=== PATIENT | female | born 1970 | race Caucasian/White ===

== ENCOUNTER 2016-09-26 10:01 | Day surgery (SDC) | payer BC ==
[2016-09-21 12:52] VITALS: BMI 27.1
[~2016-09-26 10:01] MED LIST: LACTATED RINGERS 1,000 ML IV SCH
[2016-09-26 10:13] VITALS: RESP 16; TEMP 98.2
[2016-09-26] MEDS ORDERED: LIDOCAINE 1% 20 ML VIAL (10MG/ML) FOR IV START INTRADERMA ONE (10:22)
[2016-09-26] MEDS ORDERED: fentaNYL (PF) 50 MCG/ML 2 ML AMP ONE (10:24)
[2016-09-26] MEDS ORDERED: DEXAMETHASONE SOD PHOS (MDV) 100 MG/10 ML VIAL ONE (10:24)
[2016-09-26] MEDS ORDERED: MIDAZOLAM 2 MG/2 ML VIAL ONE (10:24)
--- NOTE | 2016-09-26 10:45 | P.PCN ---
Date of Procedure: 09/26/16 Anesthesia: MAC Surgeon: Zack Serrano Pathology: none sent Condition: stable Disposition: PACU Description of Procedure: PREOPERATIVE DIAGNOSIS: Cervical radiculopathy. POSTOPERATIVE DIAGNOSIS: Cervical radiculopathy. PROCEDURE 1. Cervical epidural steroid injection under fluoroscopic guidance, C7-T1 level. 2. Cervical epidurogram. ANESTHESIA: Local anesthesia with 1% lidocaine and IV sedation with versed/ fentanyl. EBL: Minimal PROCEDURE INDICATION: The patient with neck pain and radiculitis unresponsive to conservative treatment consents for procedure. No use of blood thinners. PROCEDURE DESCRIPTION / TECHNIQUE: The patient was seen and identified in the preoperative area. Risks, benefits, complications, and alternatives were discussed with the patient (including but not limited to incomplete pain relief, bleeding, infection, nerve damage, and allergies to medications), the patient agreed to proceed with the procedure and signed the consent after all questions were answered. Patient was taken to the OR and time out was completed to verify proper patient , position, laterality of pain, and allergies. Pt was placed in the prone position. A pillow was placed under the patients chest to increase the cervical interlaminar space. The cervical area was prepped and draped in the usual sterile fashion. Critical pause was taken. Vital signs were closely monitored during the procedure. Conscious sedation was used during the procedure to decrease patients anxiety. Using anterior-posterior fluoroscopy, the C7-T1 interlaminar space was identified and the skin over this site was marked and then infiltrated with 1% lidocaine subcutaneously in a right paramedian fashion. Subsequently, a 20- gauge 3-1/2-inch Tuohy epidural needle was inserted and advanced toward the epidural space by means of the loss of resistance technique and guided by AP and lateral fluoroscopy. After negative aspiration for blood or CSF and in the absence of paresthesias, the correct needle position in the epidural space was verified with the injection of 1 mL of the water soluble contrast dye Omnipaque- 180 and observing an excellent epidurogram with the epidural spread of the dye, after negative aspiration for blood and CSF and in the absence of paresthesias. Again after negative aspiration, a 5 ml mixture containing 20 mg of Decadron and 3 ml of preservative free Normal Saline solution was injected and a washout of epidurogram was seen. Needle was withdrawn intact, skin was cleansed, and bandages were applied. COMPLICATIONS: None COMMENTS: DISPOSITION / PLANS: The patient was placed in a supine position and transferred to the recovery area in a stable condition for observation. There was no evidence of upper extremity motor or sensory deficit after the procedure. Patient was discharged from the recovery room after meeting discharge criteria. Home discharge instructions were given to the patient by the staff. The patient was reexamined prior to discharge and there were no issues. The patient will schedule a follow up in the clinic in 4-6 weeks.
--- NOTE | 2016-09-26 11:10 | FL ---
EXAMINATION TYPE: FL guided pain mgmt statistic DATE OF EXAM: 09/26/2016 10:48 AM HISTORY: Flouroscopy time 8 seconds of fluoroscopy provided. IMPRESSION: 1. Fluoroscopy time.
[2016-09-26 11:25] VITALS: BP 105/75; PULSE 68
[2016-09-26] MEDS ORDERED: IV FLUID CONTINUATION 1,000 ML IV ONE (11:25)
== END 2016-09-26 11:33 | disposition home or self-care (01) ==
LOC: ORPAIN 10:01
PROVIDERS: ATTEND Anesthesiology
DX: M54.12 Radiculopathy, cervical region (principal); Z79.891 Long term (current) use of opiate analgesic; Z79.899 Other long term (current) drug therapy
CPT/HCPCS: 81025; 62320; J2250; J3010; J1100; 62321

== ENCOUNTER → 2016-10-18 | Outpatient (CLI) | payer BC, OTHER ==
[2016-10-18 13:05] VITALS: BP 104/74; PULSE 71; RESP 16; TEMP 98
--- NOTE | 2016-10-18 14:14 | P.PN ---
Subjective This is follow-up visit for this patient with a history of severe and chronic neck pain with radiation to the upper extremities, is diagnosed with cervical degenerative disc disease and cervical radiculopathy, we have done cervical epidural steroid injections 3 and patient continued to have severe neck pain with radiation to the upper extremity bilaterally, and is currently on pain medications 1- Timberon 10/325 every 6 hours 2-Skelaxin 800 mg 3 times a day Patient denies any side effects of the medication, denies excessive drowsiness or sleepiness, denies suicidal ideation, and reports that the current pain medication is NOT helping To control the pain and improve activity of daily living Physical Examinations : 1-Constitutiona : Cooperative , not in acute distress . 2-HEENT : nech ; supple , no Lymphadenopathy , no Thyromegaly , normal thyroid size . eyes : no ptosis , no icterus, no photophobia . ENT : normal of hearing , normal oropharynx , no Thrush . 3- Respiratory : Chest clear to auscultations Bilaterally , no wheezing , no Rhonchi . 4- Cardiovascular : regular rate and rhythem , S1 , S2 , no S3 , no S4. 5- Gastrointestinal : abdomen soft no tenderness , bowel sounds positive all four quadrents , no organomegally . 6- Genitourinary : Defferred . 7- neurologic : Cranial nerve II to XII intact , no focal neurological deffecit . 8-psychatric : alert , oriented X 3 , appropriate affect , intact judgment and insight . 9-Lymphatic : no Lymphadenopathy . 10- musculoskeltal : exams of the cervical spine = motor strength normal bilateral upper extremities 4/5 bilaterally facet loading test cervical area positive. Normal sensation in the upper extremities bilaterally Assessment and plan = Cervical radiculopathy /cervical degenerative disc disease. Status post cervical epidural steroid injection 3 patient continued to have neck pain with radiation to the upper extremity, patient tried Neurontin in the past and she had side effects from it (skin breakdown ), discussed with the patient the option of starting on new medication Lyrica patient refused to take this medication because she has fuels family members used Lyrica and did have side effects from it, the patient tried Motrin in the past without any benefit, recommend start patient on Mobic 7.5 mg one tablet by mouth twice a day, and also patient could benefit from amitriptyline 25 mg daily at bedtime and this will be adjuvant for pain and also for help with sleep and improve her mood, the patient should continue her current pain medication Timberon 10/325 every 6 hours, and should continue her Skelaxin (getting prescription from Dr. Conner) , patient encouraged to do physical therapy, patient reported ,that she's done physical therapy in the past, without any benefit and I encouraged her to do physical therapy at home on her own, patient scheduled appointment to see Dr Conner 11/11/2016 for reevaluation Objective - Vital Signs Vital signs: Vital Signs Temp 98 F 10/18/16 12:51 Pulse 71 10/18/16 12:51 Resp 16 10/18/16 12:51 BP 104/74 10/18/16 12:51 Pulse Ox 99 10/18/16 12:51 Intake & Output 10/17/16 10/18/16 10/18/16 18:59 06:59 18:59 Weight 61.235 kg
== END | disposition home or self-care (01) ==
LOC: PNWHC3 12:43
PROVIDERS: ATTEND Specialist
DX: G89.29 Other chronic pain (principal); M50.30 Other cervical disc degeneration, unspecified cervical region; M54.12 Radiculopathy, cervical region
CPT/HCPCS: 99211

== ENCOUNTER 2017-08-11 14:49 | Emergency (ER) | payer OTHER ==
[2017-08-11] MEDS ORDERED: RX INFO: IV CONTRAST WAS GIVEN 1 EACH MISC MISCELLANE PRN (15:45)
--- NOTE | 2017-08-11 15:53 | ED ---
General Adult HPI - General Chief complaint: Abdominal Pain Stated complaint: [facility] Sent/Abd Pain Time Seen by Provider: 08/11/17 15:33 Source: patient, RN notes reviewed Mode of arrival: ambulatory Limitations: no limitations - History of Present Illness Initial comments: 47-year-old female presents to the emergency department with a chief complaint of left-sided rib pain. Patient has had this pain since Saturday when she got her car. She has this pain. If she bends of speech with that she coughs she's noticed is increased pain. Patient denies any fever chills with this. She states there is no pain in the abdomen. Patient denies any nausea vomiting any changes in bowel or bladder habits. Patient [facility] her here due to they thought they saw some abnormality on abdominal x- ray. Patient has no back pain with this. Patient denies any recent fever, chills, shortness of breath, chest pain, back pain, abdominal pain, nausea vomiting, numbness or tingling, dysuria or hematuria, constipation or diarrhea, headaches or visual changes, or any other current symptoms. - Related Data Home Medications Medication Instructions Recorded Confirmed Metaxalone [Skelaxin] 800 mg PO TID PRN 08/03/16 08/11/17 Ibuprofen [Motrin] 400 mg PO Q6HR PRN 08/11/17 08/11/17 Multivitamins, Thera [Multivitamin 1 tab PO DAILY 08/11/17 08/11/17 (formulary)] traMADol HCL [Ultram] 50 mg PO TID PRN 08/11/17 08/11/17 Previous Rx's Medication Instructions Recorded Ibuprofen [Motrin] 600 mg PO Q6HR PRN #20 tab 08/11/17 Orphenadrine [Norflex] 100 mg PO Q12H #10 tablet.er 08/11/17 Allergies Allergy/AdvReac Type Severity Reaction Status Date / Time gabapentin Allergy Rash/Hives Verified 08/11/17 15:04 meloxicam Allergy Rash/Hives Verified 08/11/17 15:04 Review of Systems ROS Statement: Those systems with pertinent positive or pertinent negative responses have been documented in the HPI. ROS Other: All systems not noted in ROS Statement are negative. Past Medical History Past Medical History: Osteoarthritis (OA) Additional Past Medical History / Comment(s): HX kidney stones History of Any Multi-Drug Resistant Organisms: None Reported Past Surgical History: Appendectomy, Orthopedic Surgery, Tubal Ligation Additional Past Surgical History / Comment(s): 01/19/16 cervical arthroplasty C4- 5. Other surgical hx: ovarian cyst removed, carpal tunnel right hand Past Anesthesia/Blood Transfusion Reactions: Postoperative Nausea & Vomiting ( PONV) Past Psychological History: No Psychological Hx Reported Smoking Status: Current every day smoker Past Alcohol Use History: None Reported, Rare Past Drug Use History: None Reported - Past Family History Father Family Medical History: Cancer Additional Family Medical History / Comment(s): Father of lung cancer at the age of 67yrs. Son(s) Family Medical History: Cancer Additional Family Medical History / Comment(s): Son had hodgkins and has been in remission for yrs. Mother Family Medical History: Cancer Additional Family Medical History / Comment(s): from lung ca and leukemia General Exam - General Exam Comments Initial Comments: General: The patient is awake and alert, in no distress, and does not appear acutely ill. Eye: Pupils are equal, round and reactive to light, extra-ocular movements are intact; there is normal conjunctiva bilaterally. No signs of icterus. Ears, nose, mouth and throat: There are moist mucous membranes and no oral lesions. Neck: The neck is supple, there is no tenderness. Cardiovascular: There is a regular rate and rhythm. No murmur, rub or gallop is appreciated. Respiratory: Lungs are clear to auscultation, respirations are non-labored, breath sounds are equal. No wheezes, stridor, rales, or rhonchi. Tenderness to the left lateral chest wall. Gastrointestinal: Soft, non-distended, non-tender abdomen without masses or organomegaly noted. There is no rebound or guarding present. No CVA tenderness. Bowel sounds are unremarkable. Back: There is no tenderness to palpation in the midline. There is no obvious deformity. No rashes noted. Musculoskeletal: Normal ROM, no tenderness, There is no pedal edema. There is no calf tenderness or swelling. Sensation intact. Pulses equal bilaterally 2+. Neurological: CN II-XII intact, There are no obvious motor or sensory deficits. Coordination appears grossly intact. Speech is normal. Skin: Skin is warm and dry and no rashes or lesions are noted. Psychiatric: Cooperative, appropriate mood & affect, normal judgment. Limitations: no limitations Course Vital Signs 08/11/17 14:54 Temperature 97.8 F Pulse Rate 75 Respiratory 18 Rate Blood Pressure 115/73 O2 Sat by Pulse 99 Oximetry - Reevaluation(s) Reevaluation #1: 08/11/17 16:32 Hyperkalemia was found on lab however this was slightly hemolyzed an EKG is stable. Extremities discussed follow-up for repeat in one day. EKG Findings - EKG Comments: EKG Findings:: normal sinus rhythm 68 bpm, normal axis, no atopy, no S-T depressions or elevations, Medical Decision Making - Medical Decision Making 47-year-old female presents to the emergency Department chief complaint of left- sided rib pain. This time consistent with costochondritis and muscle strain. At this time patient's outpatient imaging is reviewed we will do a CAT scan due to the concern for possible twisted bowel the family is in agreement with this plan. This time there is low suspicion. At this time the patient's imaging and lab work is been reviewed. At this time the patient does not appear to have any abdominal abnormality. Patient's symptoms are most consistent with left-sided pain. EKG was reviewed and normal. This time we discussed follow- up with her doctor return parameters and all questions. Patient stated that she understood and she is given plan. She'll be discharged. - Lab Data Result diagrams: 08/11/17 15:45 08/11/17 15:45 Lab Results 08/11/17 08/11/17 Range/Units 15:45 15:45 WBC 9.7 (3.8-10.6) k/uL RBC 4.35 (3.80-5.40) m/uL Hgb 14.5 (11.4-16.0) gm/dL Hct 43.1 (34.0-46.0) % MCV 99.2 (80.0-100.0) fL MCH 33.4 (25.0-35.0) pg MCHC 33.7 (31.0-37.0) g/dL RDW 12.4 (11.5-15.5) % Plt Count 216 (150-450) k/uL Neutrophils % 55 % Lymphocytes % 31 % Monocytes % 8 % Eosinophils % 3 % Basophils % 1 % Neutrophils # 5.3 (1.3-7.7) k/uL Lymphocytes # 3.0 (1.0-4.8) k/uL Monocytes # 0.8 (0-1.0) k/uL Eosinophils # 0.3 (0-0.7) k/uL Basophils # 0.1 (0-0.2) k/uL Sodium 137 (137-145) mmol/L Potassium 5.9 H (3.5-5.1) mmol/L Chloride 109 H (98-107) mmol/L Carbon Dioxide 22 (22-30) mmol/L Anion Gap 6 mmol/L BUN 15 (7-17) mg/dL Creatinine 0.79 (0.52-1.04) mg/dL Est GFR (MDRD) Af Amer >60 (>60 ml/min/1.73 sqM) Est GFR (MDRD) Non-Af >60 (>60 ml/min/1.73 sqM) Glucose 95 (74-99) mg/dL Calcium 9.4 (8.4-10.2) mg/dL Total Bilirubin 0.7 (0.2-1.3) mg/dL AST 53 H (14-36) U/L ALT 22 (9-52) U/L Alkaline Phosphatase 38 (38-126) U/L Total Protein 7.2 (6.3-8.2) g/dL Albumin 4.0 (3.5-5.0) g/dL - Radiology Data Radiology results: report reviewed, image reviewed Disposition Clinical Impression: Costochondral chest pain, Chest wall muscle strain Disposition: HOME SELF-CARE Condition: Stable Instructions: Costochondritis (ED) Additional Instructions: Please use medication as discussed. Please follow up with family doctor if symptoms have not improved over the next two days. Please return to the emergency room if your symptoms increase or worsen or for any other concerns. Prescriptions: Ibuprofen [Motrin] 600 mg PO Q6HR PRN #20 tab PRN Reason: Pain Orphenadrine [Norflex] 100 mg PO Q12H #10 tablet.er Referrals: Akua Grossman MD [Primary Care Provider] - 1-2 days Time of Disposition: 16:33
[2017-08-11 16:15] LABS: Basophils # (A) 0.1 k/uL (0-0.2); Basophils % (A) 1 %; CH 33.8; CHCM 34.3; Eosinophils # (A) 0.3 k/uL (0-0.7); Eosinophils % (A) 3 %; HCT 43.1 % (34.0-46.0); HDW 2.19; HGB 14.5 gm/dL (11.4-16.0); Luc # (Auto) 0.32; Luc % (Auto) 3; Lymphocytes % (A) 31 %; MCH 33.4 pg (25.0-35.0); MCHC 33.7 g/dL (31.0-37.0); MCV 99.2 fL (80.0-100.0); Mean Platelet Volume 7.8; Monocytes # (A) 0.8 k/uL (0-1.0); Monocytes % (A) 8 %; Neutrophils # (A) 5.3 k/uL (1.3-7.7); Neutrophils % (A) 55 %; RBC 4.35 m/uL (3.80-5.40); RDW 12.4 % (11.5-15.5); WBC 9.7 k/uL (3.8-10.6)
--- NOTE | 2017-08-11 16:24 | CT ---
EXAMINATION TYPE: CT abdomen pelvis w con DATE OF EXAM: 08/11/2017 COMPARISON: 12/09/2011 HISTORY: LUQ pain. CT DLP: 411.8 mGycm CONTRAST: CT scan of the abdomen and pelvis is performed without Oral Contrast and with IV Contrast, patient in jected with 100 mL of Omnipaque 300. FINDINGS: LUNG BASES-: No visible nodule. No infiltrate. Anterior pericardial collection measuring 5.5 x 1.3 c m unchanged from prior examination with fluid attenuation may reflect pericardial cyst. LIVER/GB: The gallbladder is contracted. Small hepatic cyst left hepatic lobe measuring 5 mm. No so lid hepatic lesions are detected. Biliary tree is of normal caliber. PANCREAS: No inflammation. No distinct mass. SPLEEN: No splenic enlargement. No lesion seen. ADRENALS: No nodule. No thickening. KIDNEYS/BLADDER: No hydronephrosis. No nephrolithiasis. No disctinct renal mass. Urinary bladder g rossly unremarkable. BOWEL: Nonvisualization of the appendix. Gastric distention with food debris. Normal bowel caliber. No inflammation. GENITAL ORGANS: No gross abnormality. LYMPH NODES: No greater than 1cm abdominal or pelvic lymph nodes are appreciated. AORTA: No significant abnormality. OSSEOUS STRUCTURES: No significant abnormality is seen. OTHER: No significant additional abnormality is seen. IMPRESSION: 1. No acute intra-abdominal process to account for the patient's symptoms. 2. 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
[2017-08-11 16:28] LABS: ALT 22 U/L (9-52); AST 53 U/L (14-36); Alkaline Phosphatase 38 U/L (38-126); Anion Gap 6 mmol/L; Blood Urea Nitrogen 15 mg/dL (7-17); Calcium 9.4 mg/dL (8.4-10.2); Carbon Dioxide 22 mmol/L (22-30); Chloride 109 mmol/L (98-107); Glucose 95 mg/dL (74-99); Non-African American GFR(MDRD) >60 (>60 ml/min/1.73 sqM); Sodium 137 mmol/L (137-145); Total Bilirubin 0.7 mg/dL (0.2-1.3); Total Protein 7.2 g/dL (6.3-8.2)
[2017-08-11 16:32] LABS: Potassium 5.9 mmol/L (3.5-5.1)
[2017-08-11 16:48] VITALS: BP 109/59; PULSE 76; RESP 16; TEMP 98.9
== END 2017-08-11 16:47 | disposition home or self-care (01) ==
LOC: EC 14:49
DX: S29.011A Strain of muscle and tendon of front wall of thorax, initial encounter (principal); R07.1 Chest pain on breathing; R10.9 Unspecified abdominal pain; F17.200 Nicotine dependence, unspecified, uncomplicated; Z79.899 Other long term (current) drug therapy; Z88.6 Allergy status to analgesic agent; Z88.8 Allergy status to other drugs, medicaments and biological substances; X58.XXXA Exposure to other specified factors, initial encounter
CPT/HCPCS: 36415; 93005; 80053; 85025; 74177; 99284; Q9967

== ENCOUNTER 2020-03-15 16:12 | Emergency (ER) | payer OTHER ==
[2020-03-15 16:25] VITALS: BP 128/82; PULSE 69; RESP 18; TEMP 98.2
[2020-03-15] MEDS ORDERED: AMOXIC-POT CLAV 875-125MG 1 EACH TAB PO STA (16:44)
[2020-03-15] MEDS ORDERED: DEXAMETHASONE 4 MG TAB PO STA (16:44)
--- NOTE | 2020-03-15 16:58 | ED ---
General Adult HPI - General Chief complaint: Skin/Abscess/Foreign Body Stated complaint: abscess on tonsil Time Seen by Provider: 03/15/20 16:29 Source: patient, RN notes reviewed Mode of arrival: ambulatory Limitations: no limitations - History of Present Illness Initial comments: 49-year-old female without any significant pertinent past medical history presents to the emergency department for a chief complaint of sore throat. Patient states she has had sore throat for the past 4 days. States it hurts worse on the left side. Denies any difficulty swallowing but does state it is painful when she swallows. Denies fevers or chills. States that she went to [facility] 3 days ago and they started her on Keflex and told her she had a peritonsillar abscess. She was told to go to the emergency room if things worsened. Patient states nothing is worsened by her pain is not improving. Patient has no other complaints at this time including shortness of breath, chest pain, abdominal pain, nausea or vomiting, headache, or visual changes. - Related Data Home Medications Medication Instructions Recorded Confirmed Metaxalone [Skelaxin] 800 mg PO TID PRN 08/03/16 08/11/17 Ibuprofen [Motrin] 400 mg PO Q6HR PRN 08/11/17 08/11/17 Multivitamins, Thera [Multivitamin 1 tab PO DAILY 08/11/17 08/11/17 (formulary)] traMADol HCL [Ultram] 50 mg PO TID PRN 08/11/17 08/11/17 Previous Rx's Medication Instructions Recorded Ibuprofen [Motrin] 600 mg PO Q6HR PRN #20 tab 08/11/17 Orphenadrine [Norflex] 100 mg PO Q12H #10 tablet.er 08/11/17 Amoxicillin/Potassium Clav 1 tab PO Q12HR #20 tab 03/15/20 [Augmentin 875-125 Tablet] Allergies Allergy/AdvReac Type Severity Reaction Status Date / Time gabapentin Allergy Rash/Hives Verified 03/15/20 16:25 meloxicam Allergy Rash/Hives Verified 03/15/20 16:25 Review of Systems ROS Statement: Those systems with pertinent positive or pertinent negative responses have been documented in the HPI. ROS Other: All systems not noted in ROS Statement are negative. Past Medical History Past Medical History: Osteoarthritis (OA) Additional Past Medical History / Comment(s): HX kidney stones History of Any Multi-Drug Resistant Organisms: None Reported Past Surgical History: Appendectomy, Orthopedic Surgery, Tubal Ligation Additional Past Surgical History / Comment(s): 01/19/16 cervical arthroplasty C4- 5. Other surgical hx: ovarian cyst removed, carpal tunnel right hand Past Anesthesia/Blood Transfusion Reactions: Postoperative Nausea & Vomiting (PONV) Past Psychological History: No Psychological Hx Reported Smoking Status: Current every day smoker Past Alcohol Use History: Rare Past Drug Use History: None Reported - Past Family History Father Family Medical History: Cancer Additional Family Medical History / Comment(s): Father of lung cancer at the age of 67yrs. Son(s) Family Medical History: Cancer Additional Family Medical History / Comment(s): Son had hodgkins and has been in remission for yrs. Mother Family Medical History: Cancer Additional Family Medical History / Comment(s): from lung ca and leukemia General Exam Limitations: no limitations General appearance: alert, in no apparent distress Head exam: Present: atraumatic, normocephalic, normal inspection Eye exam: Present: normal appearance, PERRL, EOMI. Absent: scleral icterus, conjunctival injection, periorbital swelling ENT exam: Present: normal exam, mucous membranes moist, TM's normal bilaterally, normal external ear exam. Absent: normal oropharynx (Mildly erythematous oropharynx without evidence of tonsillar exudates. Uvula is midline. Tonsillar pillars are symmetric. There is no evidence of peritonsillar abscess.) Neck exam: Present: normal inspection, full ROM. Absent: tenderness, men ingismus, lymphadenopathy Respiratory exam: Present: normal lung sounds bilaterally. Absent: respiratory distress, wheezes, rales, rhonchi, stridor Cardiovascular Exam: Present: regular rate, normal rhythm, normal heart sounds. Absent: systolic murmur, diastolic murmur, rubs, gallop, clicks Course Vital Signs 03/15/20 16:23 Temperature 98.2 F Pulse Rate 69 Respiratory 18 Rate Blood Pressure 128/82 O2 Sat by Pulse 98 Oximetry Medical Decision Making - Medical Decision Making Physical exam reveals a minimally erythematous oropharynx however no tonsillar exits bilaterally. There is no evidence of peritonsillar abscess whatsoever. Uvula is midline. Tonsillar pillars are symmetric. Patient was started initially on Keflex by urgent care however this will be changed to Augmentin which is more appropriate. She will be given a dose of Decadron. Patient was already tested negative for strep and has a pending culture with urgent care. I did discuss the high likelihood that this is viral. Discussed returning here if she has any worsening symptoms. Disposition Clinical Impression: Pharyngitis Disposition: HOME SELF-CARE Condition: Good Instructions (If sedation given, give patient instructions): Pharyngitis (ED) Additional Instructions: Please discontinue Keflex. Take Augmentin as directed instead. Follow up with primary care in 1-2 days. If this is not resolving you can follow up with ENT. Return to the emergency room for any worsening symptoms. Prescriptions: Amoxicillin/Potassium Clav [Augmentin 875-125 Tablet] 1 tab PO Q12HR #20 tab Is patient prescribed a controlled substance at d/c from ED?: No Referrals: Akua Grossman MD [Primary Care Provider] - 1-2 days Umesh Watts MD [STAFF PHYSICIAN] - 1-2 days Time of Disposition: 16:50
== END 2020-03-15 17:20 | disposition home or self-care (01) ==
LOC: EC 16:12
DX: J02.9 Acute pharyngitis, unspecified (principal); F17.200 Nicotine dependence, unspecified, uncomplicated; Z88.6 Allergy status to analgesic agent; Z88.8 Allergy status to other drugs, medicaments and biological substances
CPT/HCPCS: 99282; J8540

== ENCOUNTER 2024-09-13 13:24 | Emergency (ER) | payer OTHER ==
[2024-09-13 14:00] VITALS: RESP 20; TEMP 98.2
--- NOTE | 2024-09-13 14:15 | ED ---
URI HPI - General Source: patient, RN notes reviewed Mode of arrival: ambulatory Limitations: no limitations - History of Present Illness MD Complaint: cough Onset/Timin -: days(s) <Roel Ochoa - Last Filed: 09/13/24 14:14> - General Source: patient, RN notes reviewed, old records reviewed <Xavi Cortez - Last Filed: 09/13/24 15:34> - General Chief Complaint: Upper Respiratory Infection Stated Complaint: Chest/rib pain Time Seen by Provider: 09/13/24 13:41 - History of Present Illness Initial Comments: Quick note: This is a 54-year-old female presenting with reproducible chest/rib pain, bilateral ear pain and headache x 7 days. Patient states she recently went to an urgent care and was diagnosed with a bilateral ear infection and bronchitis. States she was prescribed doxycycline, prednisone and an inhaler with minimal relief. Denies fever, chills, dyspnea, hemoptysis, abdominal pain, N/V/D. (Roel Ochoa) Patient presents to the emergency department continued URI symptoms, ear pressure, face pressure, nasal discharge over the course of last week. Has been on some antibiotics as well as steroids with no significant improvement in symptoms. Is also on albuterol. Is a smoker. Presents because symptoms are persistent today. She is complaining of some rib pain with coughing. Denies any focal chest pain. Denies any nausea or vomiting or diarrhea. No other acute complaints. Presents for further evaluation at this time. (Xavi Cortez) - Related Data Home Medications Medication Instructions Recorded Confirmed Metaxalone [Skelaxin] 800 mg PO TID PRN 08/03/16 08/11/17 Ibuprofen [Motrin] 400 mg PO Q6HR PRN 08/11/17 08/11/17 Multivitamins, Thera [Multivitamin 1 tab PO DAILY 08/11/17 08/11/17 (formulary)] traMADol HCL [Ultram] 50 mg PO TID PRN 08/11/17 08/11/17 Previous Rx's Medication Instructions Recorded Ibuprofen [Motrin] 600 mg PO Q6HR PRN #20 tab 08/11/17 Orphenadrine [Norflex] 100 mg PO Q12H #10 tablet.er 08/11/17 Amoxicillin/Potassium Clav 1 tab PO Q12HR #20 tab 03/15/20 [Augmentin 875-125 Tablet] Azithromycin [Zithromax] 250 mg PO DAILY 4 Days #4 tab 09/13/24 predniSONE [Deltasone] 20 mg PO BID 5 Days #10 tab 09/13/24 Allergies Allergy/AdvReac Type Severity Reaction Status Date / Time gabapentin Allergy Rash/Hives Verified 09/13/24 14:00 meloxicam Allergy Rash/Hives Verified 09/13/24 14:00 Review of Systems ROS Other: All systems not noted in ROS Statement are negative. <Roel Ochoa - Last Filed: 09/13/24 14:14> ROS Other: All systems not noted in ROS Statement are negative. <Xavi Cortez - Last Filed: 09/13/24 15:34> ROS Statement: Those systems with pertinent positive or pertinent negative responses have been documented in the HPI. Review of Systems: CONST: Denies fever EYES: Denies blurry vision ENT: Denies nasal congestion C/V: Denies Chest pain RESP: Endorses cough, congestion GI: Denies abdominal pain : Denies dysuria SKIN: Denies rash. MSK: Denies joint pain. NEURO: Denies headache (Xavi Cortez) Past Medical History Past Medical History: Osteoarthritis (OA) Additional Past Medical History / Comment(s): HX kidney stones History of Any Multi-Drug Resistant Organisms: None Reported Past Surgical History: Appendectomy, Orthopedic Surgery, Tubal Ligation Additional Past Surgical History / Comment(s): 01/19/16 cervical arthroplasty C4- 5. Other surgical hx: ovarian cyst removed, carpal tunnel right hand Past Anesthesia/Blood Transfusion Reactions: Postoperative Nausea & Vomiting (PONV) Past Psychological History: No Psychological Hx Reported Smoking Status: Current every day smoker Past Alcohol Use History: Rare Past Drug Use History: None Reported - Past Family History Father Family Medical History: Cancer Additional Family Medical History / Comment(s): Father of lung cancer at the age of 67yrs. Son(s) Family Medical History: Cancer Additional Family Medical History / Comment(s): Son had hodgkins and has been in remission for yrs. Mother Family Medical History: Cancer Additional Family Medical History / Comment(s): from lung ca and leukemia <Roel Ochoa - Last Filed: 09/13/24 14:14> General Exam Limitations: no limitations <Roel Ochoa - Last Filed: 09/13/24 14:14> <Xavi Cortez - Last Filed: 09/13/24 15:34> - General Exam Comments Initial Comments: Visual Physical Exam Vital signs reviewed General: Well-appearing, nontoxic, no acute distress. Head: Normocephalic, atraumatic Eyes: PERRLA, EOMI ENT: Airway patent Chest: Nonlabored breathing Skin: No visual rash, normal skin tone Neuro: Alert and oriented 3 Musculoskeletal: No gross abnormalities (Roel Ochoa) General: Appears in no acute distress. HEAD: Normal with no signs of head trauma. EYES: EOMI ENT: Hearing grossly intact, normal oropharynx. RESPIRATORY: Clear breath sounds bilaterally. No wheezes, rales, or rhonchi. No significant hypoxia. No increased work of breathing. C/V: Regular rate and rhythm. S1 and S2 auscultated, no edema, peripheral pulses 2+ and intact throughout ABD: Abd is soft, nontender, nondistended EXT: Normal range of motion, no obvious deformity. Bilateral rib tenderness to palpation. SKIN: No rashes or lesions observed on exposed skin. NEURO: Alert and oriented x 4. (Xavi Cortez) Course Vital Signs 09/13/24 13:58 Temperature 98.2 F Pulse Rate 78 Respiratory 20 Rate Blood Pressure 127/81 O2 Sat by Pulse 97 Oximetry Medical Decision Making <Roel Ochoa - Last Filed: 09/13/24 14:14> <Xavi Cortez - Last Filed: 09/13/24 15:34> - Medical Decision Making I completed the quick note portion of this chart signed JUNG Martinez (Roel Ochoa) Was pt. sent in by a medical professional or institution (RIGO Estrada, [employer]PERVISOR, urgent care, hospital, or correction...) When possible be specific @ -No Did you speak to anyone other than the patient for history (EMS, parent, family, police, friend...)? What history was obtained from this source @ -No Did you review nursing and triage notes (agree or disagree)? Why? @ -I reviewed and agree with nursing and triage notes Were old charts reviewed (outside hosp., previous admission, EMS record, old EKG, old radiological studies, urgent care reports/EKG's, correction records)? Report findings @ -No old charts were reviewed Differential Diagnosis (chest pain, altered mental status, abdominal pain women, abdominal pain men, vaginal bleeding, weakness, fever, dyspnea, syncope, headache, dizziness, GI bleed, back pain, seizure, CVA, palpatations, mental health, musculoskeletal)? @ -COVID, flu, RSV, pneumonia. This list is not all inclusive. EKG interpreted by me (3pts min.). @ -None done X-rays interpreted by me (1pt min.). @ -Chest x-ray reveals no obvious acute cardiopulmonary process. CT interpreted by me (1pt min.). @ -None done U/S interpreted by me (1pt. min.). @ -None done What testing was considered but not performed or refused? (CT, X-rays, U/S, labs)? Why? @ -None What meds were considered but not given or refused? Why? @ -None Did you discuss the management of the patient with other professionals (professionals i.e. , PA, [employer]OUNTS SUPERVISOR, lab, RT, psych nurse, social science analyst, immigration lawyer, teacher, forest fire officer, special education case manager)? Give summary @ -No Was smoking cessation discussed for >3mins.? @ -No Was critical care preformed (if so, how long)? @ -No Were there social determinants of health that impacted care today? How? (Homelessness, low income, unemployed, alcoholism, drug addiction, transportation, low edu. Level, literacy, decrease access to med. care, [place] [facility], rehab)? @ -No Was there de-escalation of care discussed even if they declined (Discuss DNR or withdrawal of care, Hospice)? DNR status @ -No What co-morbidities impacted this encounter? (DM, HTN, Smoking, COPD, CAD, Cancer, CVA, ARF, Chemo, Hep., AIDS, mental health diagnosis, sleep apnea, morbid obesity)? @ -Tobacco user Was patient admitted / discharged? Hospital course, mention meds given and route, prescriptions, significant lab abnormalities, going to OR and other pertinent info. @ -Patient presents emergency department with URI symptoms. Have been ongoing for 1 week. Is currently on doxycycline as well as prednisone and inhaler. States symptoms are not significantly improving presents for further evaluation. He is still having cough. Is starting congestion. Patient was started as a quick note. I evaluated patient in the hallway. Viral swabs negative. Chest x-ray unremarkable. Vital signs within acceptable limits. I discussed results with the patient. I do not believe she requires admission at this time. Patient will be given a dose of IM Solu-Medrol as well as azithromycin. Recommend she continues of albuterol at home. She will be given additional days of prednisone. I depletes this is likely a tracheobronchitis. Strict return precautions discussed. Azithromycin will cover for atypical pneumonia/walking pneumonia. She was in agreement this plan. Strict return precautions discussed. Recommend she follow-up with her PCP in the next 1 to 3 days. I will provide the patient with a prescription for prednisone, azithromycin. I instructed the patient to follow up with their PCP in the next 1-3 days.. I explained that the patient should return to the emergency department if they experience any worsening symptoms. Strict return precautions were discussed with the patient. The patient expressed understanding of these instructions. I answered all questions that the patient had. The patient was discharged home in good condition with their prescriptions and follow up information. Undiagnosed new problem with uncertain prognosis? @ -No Drug Therapy requiring intensive monitoring for toxicity (Heparin, Nitro, Insulin, Cardizem)? @ -No Were any procedures done? @ -No Diagnosis/symptom? @ -Tracheobronchitis Acute, or Chronic, or Acute on Chronic? @ -Acute Uncomplicated (without systemic symptoms) or Complicated (systemic symptoms)? @ -Uncomplicated Side effects of treatment? @ -No Exacerbation, Progression, or Severe Exacerbation? @ -No Poses a threat to life or bodily function? How? (Chest pain, USA, VT, pneumonia, PE, COPD, DKA, ARF, appy, cholecystitis, CVA, Diverticulitis, Homicidal, Suicidal, threat to staff... and all critical care pts) @ -Unlikely at this time (Xavi Cortez) - Lab Data Lab Results 09/13/24 Range/Units 14:01 Influenza Type A (PCR) Not Detected (Not Detectd) Influenza Type B (PCR) Not Detected (Not Detectd) RSV (PCR) Not Detected (Not Detectd) SARS-CoV-2 (PCR) Not Detected (Not Detectd) Disposition <Roel Ochoa - Last Filed: 09/13/24 14:14> Is patient prescribed a controlled substance at d/c from ED?: No Time of Disposition: 15:30 <Xavi Cortez - Last Filed: 09/13/24 15:34> Clinical Impression: Tracheobronchitis Disposition: HOME SELF-CARE Condition: Good Instructions (If sedation given, give patient instructions): Acute Bronchitis (ED) Prescriptions: predniSONE [Deltasone] 20 mg PO BID 5 Days #10 tab Azithromycin [Zithromax] 250 mg PO DAILY 4 Days #4 tab Referrals: Akua Grossman MD [Primary Care Provider] - 1-2 days
--- NOTE | 2024-09-13 14:29 | XR ---
EXAMINATION TYPE: XR chest 2V DATE OF EXAM: 09/13/2024 2:12 PM COMPARISON: Chest radiographs from CLINICAL INDICATION: Female, 54 years old with history of CoughPHH TECHNIQUE: XR chest 2V Frontal and lateral views of the chest. FINDINGS: Lungs/Pleura: There is no evidence of pleural effusion, focal consolidation, or pneumothorax. Pulmonary vascularity: Unremarkable. Heart/mediastinum: Cardiomediastinal silhouette is unremarkable. Musculoskeletal: No acute osseous pathology. IMPRESSION: No acute cardiopulmonary disease/process. [facility], , 09/13/2024 2:27 PM
[2024-09-13] MEDS: AZITHROMYCIN 500 MG TAB PO STA (15:48)
[2024-09-13] MEDS: methylPREDNISolone SOD SUCCI 125 MG/2 ML VIAL IM ONE (15:49)
[2024-09-13 16:16] VITALS: BP 122/68; PULSE 84
== END 2024-09-13 15:50 | disposition home or self-care (01) ==
LOC: EC 13:24
DX: J40 Bronchitis, not specified as acute or chronic (principal); F17.200 Nicotine dependence, unspecified, uncomplicated; Z88.8 Allergy status to other drugs, medicaments and biological substances
CPT/HCPCS: 87636; 71046; 99284; 96372; J2919

== ENCOUNTER → 2025-04-05 | Outpatient (CLI) | payer OTHER ==
--- NOTE | 2025-04-05 08:03 | MM ---
Reason for Exam: Screening (asymptomatic). Last mammogram was performed 8 year(s) and 10 month(s) ago. Patient History: Menarche at age 13. First Full-Term at age 18. Postmenopausal. Patient used Hormonal Contraceptives for 2 years. Risk Values: Negar 5 year model risk: 0.8%. NCI Lifetime model risk: 6.2%. Prior Study Comparison: 07/23/2013 Bilateral Screening Mammogram, LOCATED WITHIN [facility]. 05/18/2016 Bilateral Screening Mammogram, LOCATED WITHIN [facility]. Tissue Density: The breasts are heterogeneously dense, which may obscure small masses. Findings: Analyzed By CAD. Right breast: There is no suspicious group of microcalcifications or new suspicious mass. Left breast: There is no suspicious group of microcalcifications or new suspicious mass. Overall Assessment: Negative, BI-RAD 1 Management: Screening Mammogram of both breasts in [address] [facility] will attempt to contact patient to return for supplemental views and ultrasound if indicated. Patient should continue monthly self-breast exams. A clinical breast exam by your physician is recommended on an annual basis. This exam should not preclude additional follow-up of suspicious palpable abnormalities. Note on Negar scores and lifetime risk: 1. A Negar score greater than 3% is considered moderate risk. If this is the case, consider specialist referral to assess eligibility for a risk reducing agent. 2. If overall lifetime risk for the development of breast cancer is 20% or higher, the patient may qualify for future screening with alternating mammogram and breast MRI. [facility], , 04/05/2025 8:00 AM. Electronically signed and approved by: Keyur Orlando DO
== END | disposition home or self-care (01) ==
LOC: RADMAMWWP 07:07
PROVIDERS: ATTEND Internal Medicine
DX: Z12.31 Encounter for screening mammogram for malignant neoplasm of breast (principal); R92.333 Mammographic heterogeneous density, bilateral breasts; Z78.0 Asymptomatic menopausal state; Z92.0 Personal history of contraception
CPT/HCPCS: 77063; 77067